=== PATIENT | female | born 1970 | race Caucasian/White ===

== ENCOUNTER 2022-04-12 14:25 | Emergency (ER) | payer MEDICAID ==
[~2022-04-12] VITALS: Ht 167.6 cm; Wt 109.0 kg
[2022-04-12] MEDS ORDERED: FLUT1BLS8 IH (14:34)
[2022-04-12] MEDS ORDERED: ALBU8HFA IH ×2 (14:34→21:00)
[2022-04-12] MEDS ORDERED: IPRATROPIUM BROMIDE 0.5 MG/2.5 ML NEB SOLUTION NEB ONE ×2 (15:00→16:00)
[2022-04-12] MEDS ORDERED: PredniSONE 20 MG TABLET PO ONE (15:00)
[2022-04-12] MEDS ORDERED: ALBUTEROL SULFATE 2.5 MG/0.5 ML NEB SOLUTION NEB ONE (15:00)
[2022-04-12] MEDS ORDERED: ACETAMINOPHEN 500 MG TABLET PO ONE (15:00)
[2022-04-12 15:06] LABS: COVID AG,FIA SOURCE NASOPHARYNGEAL
[2022-04-12] MEDS ORDERED: 0.9% SODIUM CHLORIDE 5 ML NEB SOLUTION NEB ONE (15:10)
[2022-04-12 15:44] LABS: INFLUENZA TYPE A NEGATIVE FOR TYPE A (NEGATIVE); INFLUENZA TYPE B NEGATIVE FOR TYPE B (NEGATIVE)
[2022-04-12 15:45] LABS: RAPID GROUP A STREP NEGATIVE (NEGATIVE)
[2022-04-12] MEDS ORDERED: ALBUTEROL SULFATE 5 MG/ML 20 ML NEB SOLN [BULK] NEB ONE (16:00)
[2022-04-12] MEDS ORDERED: PRED-554 PO (17:08)
[2022-04-12 17:33] VITALS: BP 137/84
== END 2022-04-12 18:36 | disposition home or self-care (01) ==
LOC: EMS 14:29
DX: J45.901 Unspecified asthma with (acute) exacerbation (principal); Z20.822 Contact with and (suspected) exposure to COVID-19
CPT/HCPCS: 99285; 71045; 87426; 87430; 87804; 94644; J7512; 94640; J7613